=== PATIENT | male | born 1960 | race Caucasian/White ===

== ENCOUNTER 2018-06-21 14:20 | Outpatient (CLI) | payer BC, SELFPAY ==
[2018-06-21 15:09] LABS: Abs Immature Grans 0.01 k/cumm (0.0-0.09); Absolute Basophil Count 0.04 k/cumm (0.0-0.2); Absolute Eosinophil Count 0.19 k/cumm (0.0-0.7); Absolute Lymphocyte Count 0.87 k/cumm (1.2-3.4); Absolute Monocyte Count 0.79 k/cumm (0.11-0.7); Basophils % 0.8; Eosinophils % 3.8; HCT 41.2 % (40.0-50.0); HGB 14.2 g/dL (13.5-17.5); Immature Grans % 0.2; Lymphocytes % 17.4; Mean Corp. HGB Concentration 34.5 g/dL (32.0-36.0); Mean Corpuscular Hemoglobin 32.8 pg (27.0-33.0); Mean Corpuscular Volume 95.2 fL (80-95); Mean Platelet Volume 9.2 fL (8.0-11.0); Monocytes % 15.8; Platelet Count 161 x1000/uL (130-400); RBC 4.33 m/cumm (4.50-6.00); RBC Distribution Width 12.9 % (11.8-14.1)
[2018-06-21 16:07] LABS: ALT 26 U/L (12-78); AST 21 U/L (15-37); Albumin 3.5 g/dL (3.4-5.0); Alkaline Phosphatase 59 U/L (46-116); Anion Gap 7.3 mmol/L (3-11); BUN 17 mg/dL (7-18); Bilirubin, Total 0.6 mg/dL (0.2-1.0); CO2 25.7 mmol/L (21.0-32.0); Calcium 8.1 mg/dL (8.5-10.1); Chloride 105 mmol/L (98-107); Glucose 79 mg/dL (70-100); Potassium 3.6 mmol/L (3.5-5.1); Sodium 138 mmol/L (136-145)
[2018-06-22 09:50] LABS: IgA 172 mg/dL (85-499); IgG 1356 mg/dL (610-1616); IgM 54 mg/dL (35-242); Kappa Free Light Chain 11.02 mg/dl (0.33-1.94); Lambda Free Light Chain 1.93 mg/dl (0.57-2.63)
[2018-06-22 12:53] LABS: Albumin 54.8 % (55.8-66.1); Monoclonal Spike 10.7 %; Total Protein 6.6 g/dl (6.3-8.2)
== END 2018-06-21 14:40 ==
PROVIDERS: PCP Nurse Practitioner Women's Health; Visit Provider Internal Medicine Hematology & Oncology
DX: C90.00 Multiple myeloma not having achieved remission (principal); D50.8 Other iron deficiency anemias; G89.21 Chronic pain due to trauma; R79.0 Abnormal level of blood mineral; Z85.820 Personal history of malignant melanoma of skin
CPT/HCPCS: 36415; 80053; 82784; 83883; 84165; 85025

== ENCOUNTER 2018-10-31 07:50 | Day surgery (SDC) | payer BC, SELFPAY ==
[2018-10-31 08:09] VITALS: BP 127/90; PULSE 61; RESP 16; TEMP 35.9; O2SAT 96
[2018-10-31] MEDS: Lactated Ringers 1,000 ML 80 ML IV (09:24)
--- NOTE | 2018-10-31 09:30 | DI.RAD_ITS ---
SYMPTOMS/DIAGNOSIS: MULTIPLE MYELOMA, PORT PLACEMENT C-ARM FLUOROSCOPY OF THE CHEST: Fluoroscopy Time: 10 sec Fluoroscopy was provided for guidance with placement of a central line. A single hardcopy image shows the tip of the catheter to be projecting in the lower SVC or right atrium. Please see procedure note for details. PORTABLE CHEST: Comparison is made with single fluoroscopic image performed earlier the same day. A port has been placed via the left subclavian. The tip lies in the superior vena cava. The lungs are not well inflated. No pneumothorax is seen. There are old right upper rib fractures. IMPRESSION: Satisfactory port placement.
[2018-10-31] MEDS: Bupivacaine 0.5% Pres-Free 30 ML VIAL (10:42)
[2018-10-31] MEDS: Lidocaine 1% Multi-Dose 50 ML VIAL (10:42)
--- NOTE | 2018-10-31 10:54 | W.PM.OP ---
Date of service: 10/31/18 Time of Service: 10:54 Operative Note DATE OF PROCEDURE: 10/31/18 PRE-OP DIAGNOSIS: multiple myoloma POST-OP DIAGNOSIS: same PROCEDURE: left subclavian chemoport SURGEON: Irving Zapien III ASSISTING SURGEON: Katie Griffin ANESTHESIA: MAC ESTIMATED BLOOD LOSS: 10 PATHOLOGY: none sent COMPLICATIONS: None Patient was transported to: PACU Patient's condition: stable Indications: multiple myoloma treatment Procedure Description: Patient was brought to the operating room and placed in the operative table supine position. Preoperatively patient had all aspects of the surgery discussed risk benefits alternatives were discussed in detail and consent obtained. A thorough timeout was done the entire or staff present. Patient received MAC local anesthesia and the patient was prepped and draped in a sterile fashion and Ioban dressing applied to the area. Patient had local anesthesia infiltrated into the left infra clavicle area in the lateral aspect of the clavicle and the glenohumeral fossa. Patient had a 1 cm incision with a 15 blade and a needle was inserted into the wound and directed towards the sternal notch where the subclavian vein was cannulated. At this time a guidewire was inserted and fluoroscopy was used to confirm its placement with a gentle sweep down into the superior vena cava. At this point the needle was removed and the dilator was inserted the inner portion of the dilator was removed and the sheath was remained in place a catheter for the Chemo-Port was inserted through the sheath and the sheath was broken and removed the catheter was at 25 cm at the skin fluoroscopy was used to confirm placement above the atrium in the superior vena cava. At this point a dissector was connected to the catheter and the tunneler was advanced to a second portion wound on the left breast a local anesthetic was infiltrated and approximately 3 cm incision was made approximately 10 cm below the previous incision at this point a pocket was created and the tunneler was brought through the subcutaneous tissue and out through the 3 cm wound where the catheter was placed in a gentle sweep below the clavicle into the pocket. This was approximately 35 cm a fluoroscopy was used to confirm that the catheter had not moved and he did not the catheter was cut at 35 cm and the port was placed with the securing device which was clipped in place patient had Vicryl suture used to secure the port to the inner portion of the pocket and a gentle sweep was noted of the catheter through the tract up below the clavicle into the subclavian vein. The wounds were closed with interrupted Vicryl sutures and Monocryl at the skin level prior to removing the dressings the port was tested with a port needle and sterile saline which had good blood withdrawal and the catheter was flushed with the saline. Patient tolerated procedure well of thorough debriefing was done with the entire or staff present. Fluoroscopy will be available on the static films that were taken. Patient to be discharged home upon full recovery from anesthesia. Postoperative chest x-ray to be done in the day surgery unit.
--- NOTE | 2018-10-31 11:36 | W.PM.DSUDISC ---
Discharge Plan Disposition Patient Disposition: HOME Condition: Stable Discharge Details Reason For Visit: chemoport placement Attending Provider: Irving Zapien III Primary Care Provider: Julianne Marie Home Meds and New Rx's Prescriptions: New ibuprofen 600 mg tablet 600 mg PO TID PRN (Reason: fever or pain) Qty: 20 RF: 0 Continued aspirin 325 mg Tablet 325 mg PO DAILY RF: 0 acyclovir 400 mg Tablet 400 mg PO BID RF: 0 tramadol 50 mg Tablet 0.5 - 1 tab PO Q6H PRNRF: 0 tamsulosin 0.4 mg Capsule 0.4 mg PO DAILY RF: 0 dexamethasone [Decadron] 4 mg Tablet 1 - 2 tab PO DIRECTED RF: 0 cholecalciferol (vitamin D3) [Vitamin D3] 1,000 unit Capsule 1,000 unit PO DAILY RF: 0 cetirizine 10 mg Capsule 10 mg PO DAILY RF: 0 Pomalyst 2 mg Capsule 2 mg PO DIRECTED RF: 0 Cbd Oil Sublingual RF: 0 omeprazole 40 mg Capsule,Delayed Release(Dr/Ec) 40 mg PO BID RF: 0 Discharge Instructions Stand Alone Forms: DSU Post op Instructions, Mar Monge (DSU) Referrals: Irving Zapien III, DO [OSTEOPATHIC DOCTOR] - Discharge Orders Discharge Orders: Discharge Order (Routine); Ordered 10/31/18 Ordered By: Irving Zapien III DS: Diagnosis Discharge Diagnosis (1) Multiple myeloma: Status: Acute
[2018-10-31 12:00] VITALS: BP 133/88; PULSE 53; RESP 16; TEMP 36.6; O2SAT 95
--- NOTE | 2018-10-31 14:07 | DSU.FORM ---
PowerPort isp [employer] Implantable Port placed by Dr. Zapien to left subclavian on 10/31/18: Ref: [id number] Lot: [id number]
== END 2018-10-31 12:34 | disposition home or self-care (01) ==
PROVIDERS: PCP Nurse Practitioner Family; Visit Provider Surgery
PROC: (CPT 36561; principal; 2018-10-31 09:00)
DX: C90.00 Multiple myeloma not having achieved remission (principal); Z45.2 Encounter for adjustment and management of vascular access device; K21.9 Gastro-esophageal reflux disease without esophagitis
CPT/HCPCS: 36561; 77001; C1788; J0690; J1100; J1885; J2250; J2405; J3010

== ENCOUNTER 2019-02-07 10:51 | Day surgery (SDC) | payer BC, SELFPAY ==
--- NOTE | 2019-02-07 07:13 | W.PM.HP.N ---
Date of service: 02/07/19 Time of Service: 12:00 Assessment and Plan (1) Port-A-Cath in place: Current visit: No Status: Acute A\\ Malfunctioning Port-a-cath P\\ Removal of POrt under local Risks, benefits, complications of the procedure were reviewed with the patient. Complications include but are not limited to bleeding, infection, wound dehiscence, seroma, hematoma and adverse reaction to the local. Questions were entertained and answered to his satisfaction and he wished to proceed. No guarantees were given or implied. History of Present Illness Chief Complaint: Malfunctioning port Narrative: Mr Altman is a pleasant 58 year old with a history of Myeloma. He had a port placed by Dr. Bhandari and unfortunatelyy it never worked properly per patient. He is here today to have it removed. He doesn't want another port placed at this time. Review of Systems Constitutional Denies fever(s) Cardiovascular Denies chest pain at rest, Denies irregular heart rhythm, Denies claudication, Denies palpitations, Denies dyspnea and Denies dyspnea on exertion Respiratory Denies cough, Denies dyspnea and Denies dyspnea on exertion Musculoskeletal Reports as per HPI Endocrine Denies palpitations PFSH Medical History Hypercholesterolemia (Acute) Hypertension (Chronic) Aortic root dilation (Acute) Allergic rhinitis (Acute) Ulcerative esophagitis (Acute) Osteoarthritis (Chronic) Biceps tendinitis (Acute) Nephrolithiasis (Chronic) BPH (benign prostatic hyperplasia) (Chronic) Melanoma (Acute) Multiple myeloma (Acute) Surgical procedures, elective (Acute) Surgical History S/P hip replacement (Acute) S/P shoulder surgery (Acute) H/O melanoma excision (Acute) History of right knee joint replacement (Acute) Social History Smoking/Tobacco Use Status: Never Drug use: Daily Substance use type: does not use Do you feel safe at home: Yes Do you feel safe in your relationship?: Yes Meds Home Medications Medication Instructions Recorded Confirmed Type Cbd Oil SUBLINGUAL 10/26/18 11/09/18 History Pomalyst 2 mg PO DIRECTED 10/26/18 11/09/18 History acyclovir 400 mg PO BID 10/26/18 02/07/19 History aspirin 325 mg PO DAILY 10/26/18 11/09/18 History cetirizine 10 mg PO DAILY 10/26/18 02/07/19 History cholecalciferol (vitamin D3) 1,000 unit PO DAILY 10/26/18 02/07/19 History [Vitamin D3] dexamethasone [Decadron] 1 - 2 tab PO DIRECTED 10/26/18 02/07/19 History tamsulosin 0.4 mg PO DAILY 10/26/18 02/07/19 History tramadol 0.5 - 1 tab PO Q6H PRN 10/26/18 02/07/19 History ibuprofen 600 mg PO TID PRN #20 tab 10/31/18 02/07/19 Rx omeprazole 40 mg PO BID 10/31/18 02/07/19 History Allergies Allergy/AdvReac Type Severity Reaction Status Date / Time cow dander Allergy Intermediate sinus Verified 02/07/19 11:32 infection hydromorphone [From Dilaudid] Allergy Intermediate Nausea/ Verified 02/07/19 11:32 vomiting sunscreen Allergy Intermediate Hives Uncoded 02/07/19 11:32 Exam Const General: cooperative, comfortable and no acute distress Orientation: alert and oriented x3 HENMT Head: normocephalic and atraumatic Chest Other: well healed incision over the port Resp Auscultation: clear to auscultation bilaterally Cardio Rate: regular rate Rhythm: regular rhythm Heart Sounds: no gallops, no murmurs and no rubs
--- NOTE | 2019-02-07 07:28 | ROE_ITS ---
Date of service: 02/07/19 Time of Service: 12:00 Operative Note DATE OF PROCEDURE: 02/07/19 PRE-OP DIAGNOSIS: malfunctioning port-a-cath left subclavian vein POST-OP DIAGNOSIS: same PROCEDURE: Removal of port SURGEON: Jovana Guevara ANESTHESIA: local (1% Lidocaine and 0.5% Marcaine) ESTIMATED BLOOD LOSS: 5 PATHOLOGY: none sent COMPLICATIONS: None Patient was transported to: same day Patient's condition: stable Indications: Mr. Altman is a pleasant 58 year old male who was diagnosed with myeloma.A port was placed but unfortunately they had trouble accessing the port from the beginning. He is here for removal. Risks, benefits, complications were reviewed with him and he wished to proceed. No guarantees were given or implied. Findings: Port-a-cath very deep and slightly rotated to the right. Procedure Description: After informed consent was obtained the patient was taken to the operating room and placed in a supine position. A timeout was done in the patient's name, date of , procedure to be done, antibiotic given, were reviewed. Monitors were applied and a blood pressure was done. His left chest was prepped and draped in a sterile surgical fashion. 1% lidocaine and half percent Marcaine with epinephrine was injected along the old scar as well as the subcutaneous tissue. Once the area was numb the old scar was reopened using a 15 blade. Dissection was done sharply to the subcutaneous tissue. A hemostat was then used to dissect around the catheter. Pressure was then placed just below the clavicle and the catheter was pulled out. Pressure was held for a minute. Once the pressure was released and no back bleeding was identified. Dissection was then done around the port itself using sharp dissection with a 15 blade and blunt dissection with a hemostat. I could not see any sutures. The port was then pulled out without any difficulty. Pressure was then held on the wound itself. The dermis was then re- approximated using 4-0 Vicryl. The skin was cleaned and dried and skin affix was applied. Once the skin affix was dry the patient was taken back to same day surgery in stable condition. Instrument needle counts were correct at the end of the case.
--- NOTE | 2019-02-07 07:28 | W.PM.DSUDISC ---
Discharge Plan Disposition Patient Disposition: HOME Condition: Good Discharge Details Reason For Visit: malfunctioning port-a-cath Attending Provider: Jovana Guevara Primary Care Provider: Julianne Marie Home Meds and New Rx's Prescriptions: Continued aspirin 325 mg Tablet 325 mg PO DAILY RF: 0 acyclovir 400 mg Tablet 400 mg PO BID RF: 0 tramadol 50 mg Tablet 0.5 - 1 tab PO Q6H PRNRF: 0 tamsulosin 0.4 mg Capsule 0.4 mg PO DAILY RF: 0 dexamethasone [Decadron] 4 mg Tablet 1 - 2 tab PO DIRECTED RF: 0 cholecalciferol (vitamin D3) [Vitamin D3] 1,000 unit Capsule 1,000 unit PO DAILY RF: 0 cetirizine 10 mg Capsule 10 mg PO DAILY RF: 0 Pomalyst 2 mg Capsule 2 mg PO DIRECTED RF: 0 Cbd Oil Sublingual RF: 0 omeprazole 40 mg Capsule,Delayed Release(Dr/Ec) 40 mg PO BID RF: 0 ibuprofen 600 mg tablet 600 mg PO TID PRN (Reason: fever or pain) Qty: 20 RF: 0 Discharge Instructions Instructions: Care For Your Absorbable Stitches (DC) Additional Instructions: Activity at Home after surgery: As tolerated. No restrictions Diet, Nutrition, & wound healing: As tolerated Pain Medications: Tylenol or ibuprofen as needed for pain Other: Use ice for swelling or pain Other: 1. You may shower daily. Do not scrub the incisions 2. Do not soak the incisions for 1 week 3. You may alternate ice and heat as needed for pain and swelling Wound Care: 1. Keep the incisions clean and dry Please call our office if you develop: 1. Fevers >101.5 2. Nausea or Vomiting 3. Worsening pain 4. Redness and thick discharge from the wounds If after hours please call the Hospital at and ask to speak to the on-call surgeon Stand Alone Forms: Mar Monge (YO) Activity:: Activity as Tolerated Diet:: As Tolerated Discharge Orders Discharge Orders: Discharge Order (Routine); Ordered 02/07/19 Ordered By: Jovana Guevara DS: Diagnosis Discharge Diagnosis (1) Port-A-Cath in place: Status: Acute
[2019-02-07 11:19] VITALS: BP 135/85; PULSE 64; RESP 16; TEMP 35.9; O2SAT 97
[2019-02-07] MEDS: Lactated Ringers 1,000 ML 80 ML IV (11:49)
[2019-02-07] MEDS: ceFAZolin 2 GM/50 ML BAG IVPB (12:19)
[2019-02-07] MEDS: Lidocaine 2% Multi-Dose 50 ML VIAL (12:26)
== END 2019-02-07 13:00 | disposition home or self-care (01) ==
LOC: SUR 10:51
PROVIDERS: PCP Nurse Practitioner Family; Visit Provider Surgery
PROC: (CPT 36590; principal; 2019-02-07 11:30)
DX: T82.598A Other mechanical complication of other cardiac and vascular devices and implants, initial encounter (principal); C90.00 Multiple myeloma not having achieved remission; I10 Essential (primary) hypertension
CPT/HCPCS: 36590; NC; J0690

== ENCOUNTER 2020-06-12 08:29 | Outpatient (CLI) | payer BC, SELFPAY ==
--- NOTE | 2020-06-12 08:15 | DI.RAD_ITS ---
EXAM: XR HIP PELVIS ADULT BL CLINICAL HISTORY: eval bilateral hip pain TECHNIQUE: COMPARISON: No exams were available for comparison FINDINGS: Three views were obtained. There is a total hip prosthesis in position on the left. The components appear well seated. There is severe loss of the cartilaginous joint space of the right hip superiorly. There is marked s ubchondral sclerosis of the acetabulum and femoral head and very prominent marginal osteophytes are n oted. IMPRESSION: Severe DJD right hip. THR in position left. RADIATION DOSE DELIVERED: Total DLP
== END 2020-06-12 08:49 ==
PROVIDERS: PCP Nurse Practitioner Family; Referring Provider Nurse Practitioner Family; Visit Provider Student in an Organized Health Care Education/Training Program
DX: M16.11 Unilateral primary osteoarthritis, right hip (principal); Z96.642 Presence of left artificial hip joint
CPT/HCPCS: 73521

== ENCOUNTER 2020-06-13 03:55 | Outpatient (CLI) | payer BC, SELFPAY ==
[2020-06-13 10:35] LABS: HCT 42.6 % (40.0-50.0); HGB 14.3 g/dL (13.5-17.5); MCH 31.2 pg (27.0-33.0); MCHC 33.6 % (32.0-36.0); MCV 92.8 fL (80-95); MPV 9.7 fL (8.0-11.0); Platelet Count 204 10^3/uL (130-400); RBC 4.59 10^6/uL (4.36-5.78); RDW 12.3 % (11.8-14.1)
[2020-06-13 11:38] LABS: Anion Gap 10.8 mmol/L (3-11); BUN 14 mg/dL (7-18); CO2 25.2 mmol/L (21.0-32.0); CREATININE 1.08 mg/dL (0.70-1.30); Calcium 8.2 mg/dL (8.5-10.1); Chloride 106 mmol/L (98-107); Glucose 99 mg/dL (74-106); Sodium 142 mmol/L (136-145)
== END 2020-06-13 04:15 ==
PROVIDERS: PCP Nurse Practitioner Family; Visit Provider Student in an Organized Health Care Education/Training Program
DX: M16.11 Unilateral primary osteoarthritis, right hip (principal)
CPT/HCPCS: 36415; 80048; 85027; 86850; 86900; 86901; 86920; 86870; 86880; 86885; 86902; 86970

== ENCOUNTER 2020-06-13 07:34 | Outpatient (CLI) | payer BC, SELFPAY ==
[2020-06-15 02:30] LABS: COVID-19 RT-PCR Result NEGATIVE (Negative)
== END 2020-06-13 07:54 ==
PROVIDERS: PCP Nurse Practitioner Family; Visit Provider Student in an Organized Health Care Education/Training Program
DX: M16.11 Unilateral primary osteoarthritis, right hip (principal)
CPT/HCPCS: U0003

== ENCOUNTER 2020-06-17 06:03 | Observation (INO) | payer BC, SELFPAY ==
[2020-06-17] VITALS (8 sets, daily range): BP systolic 96–128; BP diastolic 62–84; PULSE 49–63; RESP 15–21; TEMP 36.2–36.7; O2SAT 94–98
[2020-06-17] MEDS: Acetaminophen 500 MG TAB 1000 MG PO ×2 (06:54→13:11)
[2020-06-17] MEDS: Celecoxib 200 MG CAP 400 MG PO (06:54)
--- NOTE | 2020-06-17 07:22 | W.PREOPHP ---
Date of service: 06/17/20 Time of Service: 07:22 Assessment and Plan Assessment and plan (1) Osteoarthritis of right hip: Status: Acute Assessment and plan: Aleksander is a 60-year-old who has right hip arthritis. He has failed conservative options. He had hip replaced on the left side, although not perfect, significantly relieved and improved his pain. He desires to proceed with a hip replacement today. I previously discussed the risk of the procedure in the office note. Please refer to that for complete history and physical as well as assessment and plan. He agrees to proceed with a right hip replacement today. His soaking room operator has cleared for surgery, Dr. Guerra. Qualifiers: Osteoarthritis type: primary Qualified Code(s): M16.11 - Unilateral primary osteoarthritis, right hip History of Present Illness History of Present Illness Chief Complaint: Right Hip DJD Narrative: Aleksander is a 60-year-old who presents today for right hip replacement. I previously saw him in the office for his right hip. He has severe arthritis and is failed conservative options. It was unclear about when we proceed with surgery but there is an opening this week so we set him into this time slot. I did discuss his case with his soaking room operator, Dr. Guerra, who agreed to proceed with surgery soon as possible without necessarily changing any medications or without any necessary increased risk. His multiple myeloma has been stable. He continues have right hip pain. He denies chest pain or shortness of breath. He continues with his daratumumab treatments. Review of Systems All systems reviewed & are unremarkable except as noted in HPI and below PFSH Medical History Allergic rhinitis (Acute) Aortic root dilation (Acute) PT. STATES HE DOES NOT HAVE THIS CONDITION Biceps tendinitis (Acute) BPH (benign prostatic hyperplasia) (Chronic) Hypercholesterolemia (Acute) Pt denies this and would it removed from chart. Hypertension (Chronic) Melanoma (Acute) Multiple myeloma (Acute) Nephrolithiasis (Chronic) Osteoarthritis (Chronic) Ulcerative esophagitis (Acute) Surgical History H/O melanoma excision (Acute) History of right knee joint replacement (Acute) not full replacement, just repair. S/P hip replacement (Acute) S/P shoulder surgery (Acute) Surgical procedure planned (Acute) port placement Surgical procedures, elective (Acute) port-a-cath/chemoport placement, then removed. Family History Mother Brain aneurysm Father Cancer Brother Substance abuse alcohol Social History Smoking/Tobacco Use Status: Never Drug use: Never Substance use type: does not use Do you feel safe at home: Yes Do you feel safe in your relationship?: Yes Meds Home Medications and Allergies Home Medications Medication Instructions Recorded Confirmed Type Cbd Oil See Rx Instructions .ROUTE .COMPLEX 10/26/18 06/17/20 History acyclovir 400 mg PO BID 10/26/18 06/17/20 History cetirizine 10 mg PO DAILY 10/26/18 06/17/20 History cholecalciferol (vitamin D3) 1,000 unit PO DAILY 10/26/18 06/17/20 History [Vitamin D3] dexamethasone [Decadron] 1 - 2 tab PO DIRECTED 10/26/18 06/17/20 History tamsulosin 0.4 mg PO DAILY 10/26/18 06/17/20 History tramadol 0.5 - 1 tab PO Q6H PRN 10/26/18 06/17/20 History ibuprofen 600 mg PO TID PRN #20 tab 10/31/18 06/17/20 Rx omeprazole 40 mg PO BID 10/31/18 06/17/20 History colchicine 0.6 mg tablet 0.6 mg PO DAILY 06/12/20 06/17/20 History daratumumab 20 mg/mL intravenous See Rx Instructions .ROUTE .COMPLEX 06/12/20 06/17/20 History solution lisinopril 5 mg tablet 5 mg PO DAILY 06/12/20 06/17/20 History daratumumab [Darzalex] 20 mg IV 06/17/20 History zoledronic acid 1 mg IV ONCE 06/17/20 06/17/20 History Allergies Allergy/AdvReac Type Severity Reaction Status Date / Time cow dander Allergy Intermediate sinus Verified 06/13/20 11:44 infection hydromorphone [From Dilaudid] Allergy Intermediate Nausea/ Verified 06/13/20 11:44 vomiting silver AdvReac Intermediate Hives Unverified 06/17/20 06:36 [From Tegaderm AG Mesh] sunscreen Allergy Intermediate Hives Uncoded 06/13/20 11:44 Exam Const General: cooperative, healthy appearing, comfortable and no acute distress Resp Effort & Inspection: normal respiratory effort Auscultation: clear to auscultation bilaterally Cardio Rate: regular rate Rhythm: regular rhythm Results Last Vital Signs Temp 36.7 C 06/17/20 06:23 Pulse 57 L 06/17/20 06:23 Resp 17 06/17/20 06:23 BP 128/84 06/17/20 06:23 Pulse Ox 98 06/17/20 06:23
[2020-06-17] MEDS: Lactated Ringers 1,000 ML 80 ML IV (07:41)
[2020-06-17] MEDS: ceFAZolin 2 GM/50 ML BAG IVPB (07:42)
[2020-06-17] MEDS: Bupivacaine 0.25% Pres-Free 30 ML VIAL (08:29)
[2020-06-17] MEDS: Ketorolac 30 MG/ML VIAL (09:03)
--- NOTE | 2020-06-17 09:30 | DI.RAD_ITS ---
EXAM: XR HIP RT IN OR CLINICAL HISTORY: Osteoarthritis of right hip TECHNIQUE: 2D and realtime digital imaging was performed. CONTRAST MATERIAL: Refer to procedure report. COMPARISON: No exams were available for comparison FINDINGS: Fluoroscopy was provided for Dr. De Leon during the performance of a placement of a right total hip arthroplasty. Please refer to the procedure report for complete details. Fluoro time: 55.7 seconds IMPRESSION: RADIATION DOSE DELIVERED:
--- NOTE | 2020-06-17 10:46 | ROE_ITS ---
Date of service: 06/17/20 Time of Service: 09:46 Operative Note Operative Note DATE OF PROCEDURE: 06/17/20 PRE-OP DIAGNOSIS: Right Hip Osteoarthritis POST-OP DIAGNOSIS: same PROCEDURE: Right Anterior Total Hip Arthroplasty SURGEON: Win De Leon BANQUET STEWARD: Francisco Venegas ANESTHESIA: spinal ESTIMATED BLOOD LOSS: 350 PATHOLOGY: none sent TOURNIQUET TIME: 0 COMPLICATIONS: None Patient was transported to: PACU Patient's condition: stable Implants: 1. Depuy [place] Acetabular Component, 56mm 2. Depuy Acetabular Liner, 16m85cr 3. Depuy Corail Coxa Vara Femoral Stem, Size 12 4. Depuy Altrx Ceramic Femoral Head, Size 36+8.5mm Indications: I have seen Aleksander in clinic for symptoms of hip arthritis, confirmed with radiographic findings. He has exhausted nonoperative methods and was having significant limitations in daily function and desired better function and less pain. I discussed the technical details of a hip replacement. I explained the risks of the procedure to include, but not limited to, bleeding, infection, pain, stiffness, fracture, damage to nerves and vessels, damage to muscles and tendons, loosening, instability, leg length inequality, need for repeat procedure, blood clot and cardiopulmonary demise. Despite these risks, Aleksander elected to proceed. Findings: There was significant signs of arthritis throughout the hip. There were also loose periarticular osteophytes around the lateral neck and superior acetabulum. Procedure Description: Aleksander was greeted in the preoperative holding area where the correct side was identified and marked. The consent was reviewed with the patient and signed. The history and physical was updated. All questions were answered. He was taken back to the operating room. A spinal anesthestic was then administered. The patient was placed into the supine position on the operating room table. The patient was then positioned onto the ARCH table. Both feet were wrapped with Webrill cotton wrap along with Coban. The feet were placed in specialized boots for the ARCH table, well seated within the boot and secured. SCDs were applied. The patient was then slid down onto a peroneal post and the nonoperative leg was secured in a leg carbajal attached to the table. The operative side was placed into the ARCH table attachment and bed height and positioning was secured. A preoperative AP pelvis was obtained to serve as a reference for determining leg lengths. Prophylactic antibiotics in the form of cefazolin were administered. 1g of Tranxemic Acid was given intravenously within 30 minutes of incision. The right leg was then prepped with Chloraprep and draped in a standard fashion. A second prep with Chloraprep was performed prior to placement of a shower-curtain type drape with Iodine impregnated skin protection. A timeout to confirm correct identity, side and site, procedure, allergies, anesthesia, and medical concerns was performed. An obliquely oriented incision was made starting lateral to the ASIS and running distal over the Tensor Fascia Emerita (TFL) muscle belly toward the fibular head, approximately 10cm. The skin and soft tissue was dissected sharply, through Leno?s fascia, and to the fascia of the TFL. With the fascia and superior border of the IT band identified, the fascia was incised with a new knife just above any perforators from the IT band. The TFL muscle belly was bluntly dissected away from the fascia and moved laterally. The fat between TFL and rectus was identified to ensure the dissection was not within the TFL. Blunt dissection created space between abductors and the capsule and retractor was placed over the lateral femoral neck. The fibers of the rectus femoris tendon were identified and these were freed from the anterior capsule. A second cobra retractor was placed around the medial femoral neck. The TFL was further retracted laterally to show the deep fascia. Careful dissection through this layer identified three main crossing vessels of the lateral femoral circumflex. These were cauterized in multiple locations and then cut without any noticeable bleeding. The TFL was further released bluntly from the deep fascia to expose anterior hip capsule and fat the Contreras orthopaedic retractor was then placed beneath the TFL and against sartorius and medial soft tissues to protect and retract the soft tissues. A T-capsulotomy was then performed starting at the superior lateral acetabulum and moving distally to the intertrochanteric ridge. These capsular flaps were tagged with a No. 1 Ethibond and elevated from within. The capsular flaps were released to the shoulder of the lateral neck and to the lesser trochanter to give excellent visualization of the proximal femur. A neck osteotomy was performed using an oscillating saw based on preoperative templates. This cut started in the shoulder and of the lateral neck and exited medially. The saw was at all times directed medially to avoid injury to the greater trochanter. 6cm of traction was applied to the leg and the osteotomy opened. The femoral head was removed with a corkscrew, making sure to protect the TFL on its exit. This was measured on the back table to determing the starting reamer size. Portions of the rectus obscuring visualization were minimally elevated off the superior acetabulum. An anterior retractor was placed over the anterior wall between capsule and labrum and attached to the Gripper retraction system. A posterior retractor was placed similarly. This provided excellent visualization. The contents of the cotyloid fossa were removed with electrocautery and the labrum was removed with a knife. There was a notable floor osteophyte. There was significant chondromalacia of the superior acetabulum.. There were loosely attached device with lateral neck and superior lateral acetabular. Acetabular reaming began with a 52 mm reamer. This first reaming was directed anterior to posterior and medial to get down to the true floor. This was inspected and reamed until the true floor was reached. The anterior retractor was then released and entry and exit was provided by traction on the capsular flaps. I then reamed sequentially up to a 56 mm reamer where good fit was obtained. The larger reamers were oriented based on anatomical reference of the anterior and lateral rowe to ensure proper abduction and anteversion. Positioning and size was confirmed with the fluoroscopy. A 56 mm Depuy [place] acetabular component was selected. The acetabulum was reamed around the periphery with the selected acetabular size to prevent a rim fit. The deep tissues were irrigated. The acetabular component was then impacted in a position of about 40-45 degrees of abduction and 15-20 degrees of anteversion, using the patient?s anatomy as the ultimate landmark. Fluoroscopy was used to confirm this. There was excellent senior vice president of the acetabular component and the inserting handle was removed. The acetabular liner, Depuy 56 x 36 mm polyethylene liner, was inserted and lined up with the tines of the acetabular component. There was no soft tissue interposition. The liner was then impacted into position and confirmed to be well-seated. A portion of the sirena-articular cocktail was then injected around the acetabulum into the capsule and periosteum. This cocktail consisted of 50cc of 0.25% Bupivicaine and 20cc of Exparel, expanded to a total of 120cc. Traction was released from the femur. The leg was rotated to 120 degrees. Any remaining medial capsule was released until the lesser trochanter was easily palpable. A Dai retractor was placed medially. The lateral capsule was further released into the shoulder to allow access to the greater trochanter. A Dai retractor was placed over the greater trochanter which allowed the trochanter to flip in front of the capsule for excellent exposure. The leg was brought down into maximal extension and 20 degrees of adduction while ensuring there was no impingement on the acetabulum. Any remnant capsule within the trochanter was released. Piriformis and obturator externis were identified and protected. There was excellent access to the proximal femur. The lateral neck remnant was removed with a rongeur. A blunt canal probe was used to identify the canal and trajectory for later broaching. A box osteotome initiated the broach course. A small curved rasp and a curved curette were used to work laterally. Broaching then began with a size 8 Corail broach. This was inserted manually around the trochanter and into the canal before mallet blows. The broach was seated to a few millimeters below the cut level based on the neck cut and the preoperative template. Sequential broaching was continued with the [employer] pneumatic broaching device until a t ight fit was obtained with good rotational control of the femur. A trial standard neck was inserted along with a +5 trial head. The leg was brought out of extension and adduction and then reduced with traction and internal rotation. The leg was stable anteriorly in a position of 30 degrees of extension and 90 degrees of external rotation. Fluoroscopy was used to ensure there was no fracture and the stem was seated well. Leg lengths were checked with an AP pelvis and pelvic reference points. Purplle navigation system was used to confirm appropriate positioning and leg length and offset. This indicated an inaccurate recreation of the offset. Going to a coxa varus stem would re-create the offset. Once content with the desired offset and leg lengths, the leg was brought back into extension, external rotation and adduction. The periosteum and surrounding tissue was injected with remaining portion of the sirena-articular cocktail. The proximal femur was irrigated as well as the deep tissues. The Depuy Corail coxa vara stem, size 12, was then manually inserted into the proximal femur making sure to control rotation. It was then malleted into position with light blows, giving breaks to allow bone expansion and decrease risk of fracture. The selected Depuy Altrx Ceramic Head, size 36+8.5 mm, was then placed onto the clean and dry trunnion and secured with impaction o nto the tapered fit. The leg was brought back out of extension and adduction and reduced with traction and internal rotation. Stability was confirmed with no shuck at 90 degrees of external rotation and 30 degrees of extension. No impingement through range of motion arc. Final x-ray images were obtained with fluoroscopy to confirm adequate positioning and no intraoperative fracture. The deep tissues were thoroughly irrigated with Irrisept chlorhexadine solution. The second dose of TXA 1g was administered intravenously. The capsule was then reapproximated with the previously placed Ethibond sutures. The TFL fascia was finally closed with a No. 2 Stratafix, barbed suture. Deep tissues were then reapproximated with 0 Vicryl and a running 2-0 Vicryl. The skin was closed with a running 4-0 Monocryl in a subcuticular fashion. This was reinforced with skin glue. A Mepilex silver dressing was applied. At the end of the case, all counts were correct. Aleksander was transferred to the hospital bed without difficulty and suffering no apparent complication. Aleksander has a good prognosis. Physical therapy will start today and without restrictions, weight-bearing as tolerated. Aspirin 81mg BID will be used for DVT prophylaxis.
--- NOTE | 2020-06-17 11:52 | PT.INIE ---
Date of service: 06/17/20 Time of Service: 11:52 PT Notes Visit Reasons: RIGHT HIP DJD Physical Therapy Inpatient Initial Evaluation Date: 06/17/2020 Referring Doctor: Win De Leon MD PT Orders: PT CONSULT: Status post Ortho surgery Precautions: Fall. Standard. WBAT on right LE. Patient Profile/Admitting Diagnosis: Evin is a 60-year-old male with a primary unilateral osteoarthritis of the right hip and is status post right total hip arthroplasty on postoperative day 0. PMHX: Medical History Hypercholesterolemia (Acute) Hypertension (Chronic) Aortic root dilation (Acute) Allergic rhinitis (Acute) Ulcerative esophagitis (Acute) Osteoarthritis (Chronic) Biceps tendinitis (Acute) Nephrolithiasis (Chronic) BPH (benign prostatic hyperplasia) (Chronic) Melanoma (Acute) Multiple myeloma (Acute) Surgical procedures, elective (Acute) Surgical History S/P hip replacement (Acute) S/P shoulder surgery (Acute) H/O melanoma excision (Acute) History of right knee joint replacement (Acute) Social History/Home Situation: Lives with in a private home with 3 steps to enter and rail on both sides. Independent with all aspects of ADLs prior to surgery. Equipment Owned/DME: Front wheeled walker, single-point cane Subjective: Agreeable to PT consult. Reported feeling of awkwardness with the right LE with short distance ambulation. Amenable to continuing doing a longer distance after lunch in the second session. Objective: General Observation: Mepilex Ag over surgical incision. Cold pack on right hip. IV in the right UE. Mental Status: Alert and oriented x4 Pain: None reported ROM: Right Upper Extremity: Shoulder Flexion WFL. Shoulder abduction WFL. Elbow flexion WFL. Wrist flexion WFL. Opening and closing of hand WFL. Left Upper Extremity: Shoulder Flexion WFL. Shoulder abduction WFL. Elbow flexion WFL. Wrist flexion WFL. Opening and closing of hand WFL. Right Lower Extremity: Hip flexion WFL. Hip abduction WFL. Knee flexion WFL. Ankle dorsiflexion WFL. Ankle plantarflexion WFL. Left Lower Extremity: Hip flexion WFL. Hip abduction WFL. Knee flexion WFL. Ankle dorsiflexion WFL. Ankle plantarflexion WFL. Strength: Right Upper Extremity: Shoulder flexors 5/5. Shoulder abductors 5/5. Elbow flexors 5/5. Elbow extensors 5/5. Managing Partner [employer] strong. Left Upper Extremity: Shoulder flexors 5/5. Shoulder abductors 5/5. Elbow flexors 5/5. Elbow extensors 5/5. Managing Partner [employer] strong. Right Lower Extremity: Hip flexors 4/5. Hip abductors 4/5. Knee flexors 5/5. Knee extensors 4/5. Ankle dorsiflexors 5/5. Ankle plantarflexors 5/5. Left Lower Extremity:Hip flexors 5/5. Hip abductors 5/5. Knee flexors 5/5. Knee extensors 5/5. Ankle dorsiflexors 5/5. Ankle plantarflexors 5/5. Sensation: Reported numbness on the right side from the hip down to the knee. Bed Mobility/Transfers: Supine to sit supervision Sit to supine supervision Sit to stand contact-guard assist, requires use of front wheeled walker Stand to sit contact-guard assist, requires use of front wheeled walker Bed to chair contact-guard assist, requires use of front wheeled walker Chair to bed contact-guard assist, requires use of front wheeled walker Gait: Only tolerated short distance ambulation on 15 feet as patient demonstrated decreased motor control on the right hip. Requires use of front wheeled walker and minimal assist of PT. Balance: Static Sitting: Normal Dynamic Sitting: Normal Static Standing: Fair Dynamic Standing: Fair Special Tests: Mobility Limitations Standardized Measure [facility] 6 clicks Basic Mobility Inpatient Short Form: Raw Score: 18 CMS Score: 47% deficit Informed Consent/Education: Patient instructed in purpose of PT consult and plan of care. Assessment: Patient had decreased sensation and limited motor control in the hip and knee limiting hip/knee extension at time of eval. Will continue to assess maximum ambulation distance in the afternoon session. Evin demonstrates functional mobility decline requiring physical assistance and the use of front wheeled walker for all mobility ADL performance, difficulty with walking, gait instability, and lack of motor control in the right hip resulting from postoperative status. Patient presents with clinical signs and symptoms consistent with current/admitting diagnoses that have resulted to mobility limitations, gait instability, generalized weakness, and impairment of motor control as demonstrated by the following impairment level findings: 1. Decreased strength to right hip major muscle groups 2. Impaired standing balance 3. Impaired activity tolerance Impairments are contributing to the following functional limitations: 1. Inability to safely ambulate without assistive device and physical assistance 2. Increase completion time for mobility ADL performance 3. Increased fall risk 4. Inability to negotiate steps alone safely Patient is assessed as a 16040 moderate complexity based on the following: History: 60-year-old male with impairment level findings, functional limitations, and past medical history as indicated above Examination: Demonstrable impairment in strength, balance, and mobility level with underlying impairments and functional limitations as documented above Presentation:Evolving Decision Makin moderate complexity Goals: Goals X 1 session 1. Supine-Sit independent 2. Sit-Supine independent 3. Sit-Stand supervision 4. Stand-Sit supervision 5. Bed-Chair vision 6. Chair-Bed supervision 7. Standby assist gait on level surface with use of least restrictive device for at least 300 feet without report of pain nor dyspnea 8. Standby assist stair negotiation while holding onto bilateral rails for at least 10 steps without report of pain nor dyspnea 9. Supervision with home exercise program 10. Good static and dynamic standing balance/tolerance Plan of Care/Treatment Plan: 1-2x/day for 1 day. Plan of care has been reviewed with the POPULATION HEALTH COACH providing the service under Physical Therapy direction. Initiate Physical Therapy intervention for strengthening, bed mobility, transfers, gait, stairs, balance training, use of assistive device. DISCHARGE RECOMMENDATIONS: Home when medically cleared by her surgeon. Outpatient PT services in order to regain premorbid independent level with the least restrictive ambulatory device. TREATMENT CODE/TIME: 87210 x 19 minutes beginning at 11:52 AM. Thank you for the opportunity to participate in the care of this patient. Vicky Greenwood PT, DPT, CLT [facility] [place], [place]
--- NOTE | 2020-06-17 13:06 | PT.INDS ---
Date of service: 06/17/20 Time of Service: 13:06 PT Notes Visit Reasons: RIGHT HIP DJD Physical Therapy Inpatient Discharge Summary Date: 06/17/2020 Referring Doctor: Win De Leon MD PT Orders: PT CONSULT: Status post Ortho surgery Precautions: Fall. Standard. WBAT on right LE. Patient Profile/Admitting Diagnosis: Evin is a 60-year-old male with a primary unilateral osteoarthritis of the right hip and is status post right total hip arthroplasty on postoperative day 0. PMHX: Medical History Hypercholesterolemia (Acute) Hypertension (Chronic) Aortic root dilation (Acute) Allergic rhinitis (Acute) Ulcerative esophagitis (Acute) Osteoarthritis (Chronic) Biceps tendinitis (Acute) Nephrolithiasis (Chronic) BPH (benign prostatic hyperplasia) (Chronic) Melanoma (Acute) Multiple myeloma (Acute) Surgical procedures, elective (Acute) Surgical History S/P hip replacement (Acute) S/P shoulder surgery (Acute) H/O melanoma excision (Acute) History of right knee joint replacement (Acute) Social History/Home Situation: Lives with in a private home with 3 steps to enter and rail on both sides. Independent with all aspects of ADLs prior to surgery. Equipment Owned/DME: Front wheeled walker, single-point cane Subjective: Looking forward to going home with the with orthopedic MD's clearance. Objective: General Observation: Mepilex Ag over surgical incision. Cold pack on right hip. IV in the right UE. Mental Status: Alert and oriented x4 Pain: None reported ROM: Right Upper Extremity: Shoulder Flexion WFL. Shoulder abduction WFL. Elbow flexion WFL. Wrist flexion WFL. Opening and closing of hand WFL. Left Upper Extremity: Shoulder Flexion WFL. Shoulder abduction WFL. Elbow flexion WFL. Wrist flexion WFL. Opening and closing of hand WFL. Right Lower Extremity: Hip flexion WFL. Hip abduction WFL. Knee flexion WFL. Ankle dorsiflexion WFL. Ankle plantarflexion WFL. Left Lower Extremity: Hip flexion WFL. Hip abduction WFL. Knee flexion WFL. Ankle dorsiflexion WFL. Ankle plantarflexion WFL. Strength: Right Upper Extremity: Shoulder flexors 5/5. Shoulder abductors 5/5. Elbow flexors 5/5. Elbow extensors 5/5. Airplane Engineer strong. Left Upper Extremity: Shoulder flexors 5/5. Shoulder abductors 5/5. Elbow flexors 5/5. Elbow extensors 5/5. Airplane Engineer strong. Right Lower Extremity: Hip flexors 4/5. Hip abductors 4/5. Knee flexors 5/5. Knee extensors 4/5. Ankle dorsiflexors 5/5. Ankle plantarflexors 5/5. Left Lower Extremity:Hip flexors 5/5. Hip abductors 5/5. Knee flexors 5/5. Knee extensors 5/5. Ankle dorsiflexors 5/5. Ankle plantarflexors 5/5. Sensation: Reported numbness on the right side from the hip down to the knee. Bed Mobility/Transfers: Supine to sit supervision Sit to supine supervision Sit to stand contact-guard assist, requires use of front wheeled walker Stand to sit contact-guard assist, requires use of front wheeled walker Bed to chair contact-guard assist, requires use of front wheeled walker Chair to bed contact-guard assist, requires use of front wheeled walker Gait: 250 feet +250 feet using a front wheeled walker on level surface. Patient also tolerated up and down six 4 inch steps and four 6 inch steps with single-point cane on one side and while holding onto one rail with the other hand requiring only standby assist. Balance: Static Sitting: Normal Dynamic Sitting: Normal Static Standing: Fair Dynamic Standing: Fair Assessment: At time of discharge, patient demonstrated improved functional mobility level at standby assist using the front wheeled walker all mobility ADL performance. Goals: Goals X 1 session 1. Supine-Sit independent MET 2. Sit-Supine independent MET 3. Sit-Stand supervision NOT MET 4. Stand-Sit supervision NOT MET 5. Bed-Chair supervision NOT MET 6. Chair-Bed supervision NOT MET 7. Standby assist gait on level surface with use of least restrictive device for at least 300 feet without report of pain nor dyspnea MET 8. Standby assist stair negotiation while holding onto bilateral rails for at least 10 steps without report of pain nor dyspnea MET 9. Supervision with home exercise program NOT MET 10. Good static and dynamic standing balance/tolerance NOT MET DISCHARGE RECOMMENDATIONS: Home when medically cleared by her surgeon. Outpatient PT services in order to regain premorbid independent level with the least restrictive ambulatory device. TREATMENT CODE/TIME: 83695 x 31 minutes beginning at 13:06 PM. Thank you for the opportunity to participate in the care of this patient. Vicky Greenwood PT, DPT, CLT [facility] [place], [place]
[2020-06-17] MEDS: ceFAZolin 1 GM/50 ML BAG IVPB (13:09)
--- NOTE | 2020-06-17 14:14 | W.PM.DS.N ---
Date of service: 06/17/20 Time of Service: 14:58 DS: Diagnosis Discharge Diagnosis (1) Osteoarthritis of right hip: Status: Acute Discharge Plan Disposition Patient Disposition: HOME Condition: Good Discharge Details Reason For Visit: RIGHT HIP DJD Admit Date/Time: 06/17/20 06:03 Admit Provider: Win De Leon Attending Provider: Win De Leon Primary Care Provider: Julianne Marie [facility] Hospital Course: Patient was admitted to the medical/surgical floor following the procedure. The surgery was tolerated well without any notable medical, surgical, or anesthetic complications. Mobilization began postoperatively. [He][She] was voiding spontaneously. Vitals were stable. Physical therapy worked with the patient and was cleared for discharge home. No acute medical issues. Pain was controlled on oral regimen. Home Meds and New Rx's Prescriptions: New aspirin 81 mg tablet,delayed release (DR/EC) 81 mg PO BID Qty: 60 RF: 0 acetaminophen 500 mg tablet 1,000 mg PO Q8H PRN (Reason: pain) Qty: 90 RF: 3 docusate sodium [Colace] 100 mg capsule 100 mg PO BID PRNQty: 10 RF: 0 ibuprofen 600 mg tablet 600 mg PO TID PRNQty: 90 RF: 3 oxycodone 5 mg tablet 5 mg PO Q4H Qty: 12 RF: 0 Continued colchicine 0.6 mg tablet 0.6 mg PO DAILY RF: 0 lisinopril 5 mg tablet 5 mg PO DAILY RF: 0 daratumumab 20 mg/mL solution See Rx Instructions .ROUTE .COMPLEX RF: 0 Darzalex 20 mg/mL Solution 20 mg IV RF: 0 zoledronic acid 4 mg/5 mL Solution 1 mg IV ONCE RF: 0 acyclovir 400 mg Tablet 400 mg PO BID RF: 0 tamsulosin 0.4 mg Capsule 0.4 mg PO DAILY RF: 0 dexamethasone [Decadron] 4 mg Tablet 1 - 2 tab PO DIRECTED RF: 0 cholecalciferol (vitamin D3) [Vitamin D3] 1,000 unit Capsule 1,000 unit PO DAILY RF: 0 cetirizine 10 mg Capsule 10 mg PO DAILY RF: 0 Cbd Oil See Rx Instructions .ROUTE .COMPLEX RF: 0 omeprazole 40 mg Capsule,Delayed Release(Dr/Ec) 40 mg PO BID RF: 0 Discontinued tramadol 50 mg Tablet 0.5 - 1 tab PO Q6H PRNRF: 0 ibuprofen 600 mg tablet 600 mg PO TID PRN (Reason: fever or pain) Qty: 20 RF: 0 Discharge Instructions Additional Instructions: Dr. De Leon's Total Hip Discharge Instructions Activity: The most important activity is to walk. You should try to take short walks a few times a day. You have no restrictions on movement or positioning, but do not try to force what you do. You will find some stiffness and weakness with hip flexion (lifting your knee). Do not try to strengthen this too early, continue to practice walking and stairs and this will come. - Outpatient physical therapy can be helpful to help return you to a normal gait and improve your flexibility and strength. This can start around 2 weeks. For most patients, it?s not necessary. Usually this is determined at the time of discharge or at the first post-operative visit. - You should wear the AYE hose on both legs for 2 weeks. You may remove those at night. These prevent blood pooling and swelling. Dressing: Keep the surgical dressing in place for at least one week, although it may stay in place untill follow-up. It may get wet after 3 days but avoid soaking the dressing. If it gets wet, just lightly pat dry. Most people prefer to cover the dressing with some ClingWrap, Saran Wrap, to keep it dry. After the first week it may be removed if desired and then replaced with light gauze and tape or nothing. It is important to always keep some gauze or the dressing between skin folds, especially when you are sitting, so the incision is not folded over on itself at the belly fold. Medications: - You should take Tylenol and an anti-inflammatory Ibuprofen as your primary pain control medications - You have been prescribed a stronger pain medication Oxycodone for breakthrough pain, take as needed as prescribed. - You should continue your stomach acid reduction agent Omeprazole to help reduce stomach acid and reflux. - You will be taking Aspirin 81mg twice a day for DVT prevention unless instructed otherwise. - If you have constipation you should take Colace or Miralax (both [id number]). It takes most people 3-4 days to have a bowel movement. Follow-up: 2 weeks. If you have any acute concerns or questions, please do not hesitate to contact the office at [phone]. You may contact Dr. De Leon with any questions after hours through the hospital at [phone] or on his cell phone at [phone]. Referrals: Win De Leon MD [ [facility] STAFF PHYSICIAN] - Activity:: Activity as Tolerated Equipment/Supplies:: Walker Diet:: As Tolerated Discharge Orders Discharge Orders: Discharge Order (Routine); Ordered 06/17/20 Ordered By: Win De Leon DS: Summary Status at Discharge Functional status at discharge: uses cane/walker Overall status at discharge: patient is progressing back to baseline Mental Status: mental status grossly normal Speech and Movement: speech and movement normal Mood: congruent mood Affect: normal affect Exam Psych Mental Status: mental status grossly normal Speech and Movement: speech and movement normal Mood: congruent mood Affect: normal affect DS: Data Vitals/I&O Vitals and I&O: Vital Signs Temperature 36.4 C L 06/17/20 10:56 Temperature Source Tympanic 06/17/20 10:56 Pulse 49 L 06/17/20 10:56 Pulse Rhythm Regular 06/17/20 13:50 Respiratory Rate 18 06/17/20 10:56 Respiratory Effort Non-Labored 06/17/20 13:50 Respiratory Depth Normal 06/17/20 13:50 Respiratory Pattern Normal 06/17/20 13:50 Blood Pressure 124/75 06/17/20 10:56 Pulse Oximetry 98 06/17/20 10:56 Respiratory End-tidal CO2 30 06/17/20 10:29 Oxygen Delivery Method Room Air 06/17/20 10:56 Oxygen Flow Rate 0 06/17/20 10:56 Pain Level 0 06/17/20 10:56 Intake & Output 06/16/20 06/17/20 06/17/20 23:59 11:59 23:59 Intake Total 730 / 1270 540 / 1270 Output Total 550 / 950 400 / 950 Balance 180 / 320 140 / 320 Weight 85.1 kg Intake: IV 670 / 670 Oral 60 / 600 540 / 600 Output: Urine 200 / 600 400 / 600 Estimated Blood Loss 350 / 350 Other: Urine Color Yellow Yellow Urine Appearance Clear Clear Urine Odor Normal Emesis Description None Voiding Methods Toilet [facility] Medical History Allergic rhinitis (Acute) Aortic root dilation (Acute) PT. STATES HE DOES NOT HAVE THIS CONDITION Biceps tendinitis (Acute) BPH (benign prostatic hyperplasia) (Chronic) Hypercholesterolemia (Acute) Pt denies this and would it removed from chart. Hypertension (Chronic) Melanoma (Acute) Multiple myeloma (Acute) Nephrolithiasis (Chronic) Osteoarthritis (Chronic) Ulcerative esophagitis (Acute) Surgical History H/O melanoma excision (Acute) History of right knee joint replacement (Acute) not full replacement, just repair. S/P hip replacement (Acute) S/P shoulder surgery (Acute) Surgical procedure planned (Acute) port placement Surgical procedures, elective (Acute) port-a-cath/chemoport placement, then removed. Family History Mother Brain aneurysm Father Cancer Brother Substance abuse alcohol Social History Smoking/Tobacco Use Status: Never Drug use: Never Substance use type: does not use Do you feel safe at home: Yes Do you feel safe in your relationship?: Yes
[2020-06-17] MEDS: Ketorolac 15 MG/ML VIAL IVP (15:27)
[2020-06-17] MEDS: Normal Saline Flush 10 ML SYR IV (15:28)
== END 2020-06-17 15:55 | disposition home or self-care (01) ==
LOC: PDS 10:08 → MS 10:09
PROVIDERS: Admitting Provider Student in an Organized Health Care Education/Training Program; PCP Nurse Practitioner Family; Visit Provider Student in an Organized Health Care Education/Training Program
PROC: 0SR904A Replacement of Right Hip Joint with Ceramic on Polyethylene Synthetic Substitute, Uncemented, Open Approach (ICD-10-PCS; CPT 27130; principal; 2020-06-17 07:30)
DX: M16.11 Unilateral primary osteoarthritis, right hip (principal); M25.551 Pain in right hip; Z96.641 Presence of right artificial hip joint
CPT/HCPCS: 27130; 20985; 97162; 97530; NC; 73501; G0378; J0690; J1100; J1885; J2001; J2405

== ENCOUNTER 2020-07-03 09:27 | Outpatient (CLI) | payer BC, SELFPAY ==
--- NOTE | 2020-07-03 09:00 | DI.RAD_ITS ---
EXAM: XR HIP RT COMPLETE AP PELVIS CLINICAL HISTORY: f/u R JOHN TECHNIQUE: COMPARISON: CR XR HIP PELVIS ADULT BL from 06/12/2020 FINDINGS: Two views were obtained and show total hip joint replacement in position on the right. The component s appear well seated. Left THR also noted in place. IMPRESSION: Bilateral hip replacements in position. No other significant findings. RADIATION DOSE DELIVERED: Total DLP
== END 2020-07-03 09:47 ==
PROVIDERS: PCP Nurse Practitioner Family; Referring Provider Nurse Practitioner Family; Visit Provider Student in an Organized Health Care Education/Training Program
DX: Z96.643 Presence of artificial hip joint, bilateral (principal)
CPT/HCPCS: 73502

== ENCOUNTER 2021-06-25 09:41 | Outpatient (CLI) | payer BC, SELFPAY ==
--- NOTE | 2021-06-25 09:15 | DI.RAD_ITS ---
Exam(s) XR HIP RT AP LAT ONLY EXAM: XR HIP RT AP LAT ONLY CLINICAL HISTORY: annual f/u R JOHN. TECHNIQUE: 2D digital imaging was performed. COMPARISON: CR XR HIP RT COMPLETE AP PELVIS from 07/03/2020 FINDINGS: Is continued stable position alignment of the components of the right hip prosthesis. No fracture or loosening evident. No significant dystrophic calcification. IMPRESSION: DATA REPOSITORY: RADIATION DOSE DELIVERED:
== END 2021-06-25 09:42 | disposition home or self-care (01) ==
LOC: DIORS 09:41
PROVIDERS: PCP Nurse Practitioner Family; Referring Provider Nurse Practitioner Family; Visit Provider Student in an Organized Health Care Education/Training Program
DX: Z96.641 Presence of right artificial hip joint (principal); Z98.890 Other specified postprocedural states
CPT/HCPCS: 73502

== ENCOUNTER 2022-09-28 02:34 | Outpatient (CLI) | payer BC, SELFPAY ==
[2022-09-28 12:21] LABS: Abs Immature Grans 0.04 10^3/uL (0.0-0.06); Absolute Basophil Count 0.03 10^3/uL (0.0-0.2); Absolute Eosinophil Count 0.02 10^3/uL (0.0-0.7); Absolute Lymphocyte Count 1.03 10^3/uL (1.2-3.4); Absolute Monocyte Count 0.91 10^3/uL (0.1-0.8); Absolute Neutrophil Count 6.67 10^3/uL (1.2-6.7); Basophils % 0.3; Eosinophils % 0.2; HCT 42.8 % (40.0-50.0); HGB 14.2 g/dL (13.5-17.5); Immature Grans % 0.5; Lymphocytes % 11.8; MCH 30.2 pg (27.0-33.0); MCHC 33.2 % (32.0-36.0); MCV 91 fL (80-95); MPV 9.2 fL (8.0-11.0); Monocytes % 10.5; Neutrophils % 76.7; Platelet Count 247 10^3/uL (130-400); RDW 12.3 % (11.8-14.1); RDW-SD 41.4 fL
[2022-09-28 12:32] LABS: Bilirubin Negative (Negative); Blood Negative (Negative); Clarity Clear (Clear); Glucose Negative (Negative); Ketones Negative (Negative); Leukocyte Esterase Negative (Negative); Nitrite Negative (Negative); Urobilinogen 0.2 EU/dL (Up TO 0.2)
[2022-09-28 13:25] LABS: ALT 26 U/L (16-63); AST 20 U/L (15-37); Albumin 3.4 g/dL (3.4-5.0); Alkaline Phosphatase 75 U/L (46-116); Anion Gap 8.8 mmol/L (3-11); BUN 20 mg/dL (7-18); Bilirubin, Total 0.2 mg/dL (0.2-1.0); CO2 28.2 mmol/L (21.0-32.0); Calcium 9.2 mg/dL (8.5-10.1); Chloride 100 mmol/L (98-107); Estimated GFR 84.57 (mL/min/1.73m2); Glucose 85 mg/dL (74-106); LDH 195 U/L (85-227); Potassium 3.9 mmol/L (3.5-5.1); Sodium 137 mmol/L (136-145); Total Protein 7.5 g/dL (6.4-8.2)
[2022-09-29 11:47] LABS: IgA 111 mg/dL (85-499); IgG 891 mg/dL (610-1616); IgM 28 mg/dL (35-242); Kappa Free Light Chain 3.92 mg/dL (0.33-1.94); Lambda Free Light Chain 1.32 mg/dL (0.57-2.63)
[2022-09-29 13:24] LABS: Albumin 55.2 % (55.8-66.1); Albumin g/dL 3.6 g/dL (3.6-5.2); Comment (See Note); Monoclonal Spike 7.1 % (None Seen); Monoclonal Spike g/dL 0.5 g/dL (None Seen); Total Protein 6.6 g/dL (6.3-8.2)
[2022-09-29 17:15] LABS: Beta-2-Microglobulin 2.56 mcg/mL
== END 2022-09-28 02:35 | disposition home or self-care (01) ==
LOC: LBO 02:34
PROVIDERS: PCP Nurse Practitioner Family; Visit Provider Internal Medicine Hematology & Oncology
DX: C90.01 Multiple myeloma in remission (principal)
CPT/HCPCS: 36415; 80053; 82784; 81003; 82232; 83615; 83883; 84165; 85025

== ENCOUNTER 2024-07-19 02:04 | Outpatient (CLI) | payer BC, SELFPAY ==
[2024-07-19 07:57] LABS: Abs Immature Grans 0.03 10^3/uL (0.0-0.06); Absolute Basophil Count 0.02 10^3/uL (0.0-0.2); Absolute Eosinophil Count 0.03 10^3/uL (0.0-0.7); Absolute Lymphocyte Count 0.77 10^3/uL (1.2-3.4); Absolute Monocyte Count 0.49 10^3/uL (0.1-0.8); Absolute Neutrophil Count 6.26 10^3/uL (1.2-6.7); Basophils % 0.3 %; Eosinophils % 0.4 %; HCT 42.1 % (40.0-50.0); HGB 13.7 g/dL (13.5-17.5); Immature Grans % 0.4 %; Lymphocytes % 10.1 %; MCHC 32.5 % (32.0-36.0); MCV 98 fL (80-95); MPV 8.9 fL (8.0-11.0); Monocytes % 6.4 %; Neutrophils % 82.4 %; Platelet Count 182 10^3/uL (130-400); RBC 4.28 10^6/uL (4.36-5.78); RDW 12.9 % (11.8-14.1); RDW-SD 46.1 fL
[2024-07-19 08:17] LABS: ALT 23 U/L (16-63); AST 15 U/L (15-37); Albumin 3.2 g/dL (3.4-5.0); Alkaline Phosphatase 56 U/L (46-116); Anion Gap 8.7 mmol/L (3-11); BUN 22 mg/dL (7-18); Bilirubin, Total 0.32 mg/dL (0.2-1.0); CO2 27.3 mmol/L (21.0-32.0); CREATININE 1.1 mg/dL (0.70-1.30); Calcium 8.5 mg/dL (8.5-10.1); Chloride 103 mmol/L (98-107); Glucose 91 mg/dL (74-106); Potassium 4.2 mmol/L (3.5-5.1); Sodium 139 mmol/L (136-145); Total Protein 6.7 g/dL (6.4-8.2)
[2024-07-20 09:15] LABS: IgA 34 mg/dL (85-499); IgG 865 mg/dL (610-1616); IgM 24 mg/dL (35-242); Kappa Free Light Chain 1.44 mg/dL (0.33-1.94); Lambda Free Light Chain <0.44 mg/dL (0.57-2.63)
[2024-07-20 14:39] LABS: Albumin 59.3 % (55.8-66.1); Albumin g/dL 3.6 g/dL (3.6-5.2); Comment (See Note); Monoclonal Spike g/dL 0.5 g/dL (None Seen); Total Protein 6.1 g/dL (6.3-8.2)
[2024-07-20 17:48] LABS: Beta-2-Microglobulin 1.93 mcg/mL
== END 2024-07-19 02:05 | disposition home or self-care (01) ==
LOC: LBO 02:04
PROVIDERS: Visit Provider Internal Medicine Hematology & Oncology
DX: D50.9 Iron deficiency anemia, unspecified (principal); C90.00 Multiple myeloma not having achieved remission; Z96.642 Presence of left artificial hip joint; M89.9 Disorder of bone, unspecified
CPT/HCPCS: 36415; 80053; 82784; 82232; 83883; 84165; 85025

== ENCOUNTER 2025-04-11 13:30 | Outpatient (CLI) | payer BC, SELFPAY ==
[2025-04-11 13:50] LABS: Abs Immature Grans 0.04 10^3/uL (0.0-0.06); Absolute Basophil Count 0.02 10^3/uL (0.0-0.2); Absolute Lymphocyte Count 0.89 10^3/uL (1.2-3.4); Basophils % 0.2 %; HCT 38.2 % (40.0-50.0); HGB 12.9 g/dL (13.5-17.5); Immature Grans % 0.3 %; Lymphocytes % 7.5 %; MCH 32.4 pg (27.0-33.0); MCHC 33.8 % (32.0-36.0); MCV 96 fL (80-95); MPV 9.4 fL (8.0-11.0); Monocytes % 5.1 %; Neutrophils % 86.9 %; Platelet Count 225 10^3/uL (130-400); RBC 3.98 10^6/uL (4.36-5.78); RDW 12.2 % (11.8-14.1); RDW-SD 42.9 fL; WBC 11.85 10^3/uL (4.4-10.8)
[2025-04-11 14:42] LABS: ALT 29 U/L (16-63); AST 14 U/L (15-37); Alkaline Phosphatase 59 U/L (46-116); Anion Gap 8.2 mmol/L (3-11); BUN 25 mg/dL (7-18); Bilirubin, Total 0.3 mg/dL (0.2-1.0); CO2 27.8 mmol/L (21.0-32.0); CREATININE 1.1 mg/dL (0.70-1.30); Calcium 8.4 mg/dL (8.5-10.1); Chloride 105 mmol/L (98-107); Ferritin 210 ng/mL (26-388); Glucose 113 mg/dL (74-106); Potassium 3.9 mmol/L (3.5-5.1); Sodium 141 mmol/L (136-145); Total Protein 6.2 g/dL (6.4-8.2)
[2025-04-11 14:49] LABS: Iron 46 ug/dL (65-175); Total Iron Binding Capacity 293 ug/dL (250-450); Transferrin Sat 16 % (20-55)
[2025-04-11 22:16] LABS: Total Protein 5.7 g/dL (6.3-8.2)
[2025-04-12 10:23] LABS: IgA 30 mg/dL (85-499); IgG 812 mg/dL (610-1616); IgM 14 mg/dL (35-242); Kappa Free Light Chain 1.24 mg/dL (0.33-1.94); Lambda Free Light Chain <0.44 mg/dL (0.57-2.63)
[2025-04-12 12:21] LABS: Albumin g/dL 3.4 g/dL (3.6-5.2); Comment (See Note); Monoclonal Spike 9.8 % (None Seen); Monoclonal Spike g/dL 0.6 g/dL (None Seen)
== END 2025-04-11 13:31 | disposition home or self-care (01) ==
LOC: LBO 13:30
DX: D50.9 Iron deficiency anemia, unspecified (principal); R53.83 Other fatigue; C90.01 Multiple myeloma in remission
CPT/HCPCS: 36415; 80053; 82784; 82728; 83540; 83550; 83883; 84165; 85025

== ENCOUNTER 2025-06-12 14:59 | Outpatient (CLI) | payer BC, SELFPAY ==
[2025-06-12 14:41] LABS: Ferritin 493 ng/mL (26-388)
[2025-06-12 14:52] LABS: Iron 56 ug/dL (65-175); Total Iron Binding Capacity 324 ug/dL (250-450); Transferrin Sat 17 % (20-55)
== END 2025-06-12 15:00 | disposition home or self-care (01) ==
LOC: LBO 14:59
DX: D50.9 Iron deficiency anemia, unspecified (principal); R53.83 Other fatigue
CPT/HCPCS: 36415; 82728; 83540; 83550